=== PATIENT | female | born 1975 | race African-American/Black ===

== ENCOUNTER 2022-06-02 15:25 | Emergency (ER) | payer BC, MEDICAID ==
[~2022-06-02] VITALS: Ht 157.5 cm; Wt 104.0 kg
[2022-06-02 15:38] VITALS: BP 170/93
[2022-06-02] MEDS ORDERED: P50 MT (18:55)
[2022-06-02] MEDS ORDERED: CEPH500T MT (18:55)
[2022-06-02] MEDS ORDERED: ALBU18HF2 IH (18:56)
[2022-06-02] MEDS ORDERED: IBUP-2030 MT (18:58)
== END 2022-06-02 19:17 | disposition home or self-care (01) ==
LOC: ER 15:25
DX: N76.4 Abscess of vulva (principal); J44.1 Chronic obstructive pulmonary disease with (acute) exacerbation; J45.909 Unspecified asthma, uncomplicated; Z98.890 Other specified postprocedural states
CPT/HCPCS: 81025; 99282

== ENCOUNTER 2022-09-27 09:57 | Emergency (ER) | payer BC, OTHER ==
[~2022-09-27] VITALS: Ht 157.5 cm; Wt 94.0 kg
[~2022-09-27 09:57] MED LIST: ALBU18HF2 IH; CEPH500T MT; IBUP-2030 MT; P50 MT
[2022-09-27 10:01] VITALS: BP 146/81; PULSE 95; RESP 18; TEMP 98.3; O2SAT 96
[2022-09-27] MEDS ORDERED: METR-167 MT (10:34)
== END 2022-09-27 11:08 | disposition home or self-care (01) ==
LOC: ER 09:57
DX: N89.8 Other specified noninflammatory disorders of vagina (principal); J45.909 Unspecified asthma, uncomplicated; Z98.890 Other specified postprocedural states
CPT/HCPCS: 99281

== ENCOUNTER 2023-03-15 11:33 | Emergency (ER) | payer BC, OTHER ==
[~2023-03-15] VITALS: Ht 165.1 cm; Wt 90.0 kg
[~2023-03-15 11:33] MED LIST changes: +METR-167 MT
[2023-03-15 11:37] VITALS: O2SAT 97
[2023-03-15] MEDS ORDERED: ALBUTEROL (0.083%) 2.5MG/3ML NEB HHN STA (11:54)
[2023-03-15] MEDS ORDERED: PREDNISONE 20MG TABLET PO STA (11:54)
[2023-03-15] MEDS ORDERED: IPRATROPIUM BROMIDE (0.02%) 0.5MG/2.5ML NEB HHN STA (11:54)
[2023-03-15] MEDS ORDERED: ACETAMINOPHEN 325MG TABLET PO ONE (12:00)
[2023-03-15] MEDS ORDERED: IBUPROFEN 400MG TABLET PO ONE (12:00)
[2023-03-15 14:00] VITALS: PULSE 90; RESP 24
[2023-03-15] MEDS ORDERED: PREDNISONE 20MG TABLET PO NR (14:00)
[2023-03-15] MEDS ORDERED: ONDANSETRON HCL 4MG TABLET PO ONE (14:00)
[2023-03-15] MEDS ORDERED: IPRATROPIUM BROMIDE (0.02%) 0.5MG/2.5ML NEB HHN NR (14:00)
[2023-03-15] MEDS ORDERED: ALBUTEROL (0.083%) 2.5MG/3ML NEB HHN NR (14:00)
[2023-03-15] MEDS ORDERED: IBUPROFEN 400MG TABLET PO NR (14:00)
[2023-03-15] MEDS ORDERED: ACETAMINOPHEN 325MG TABLET PO NR (14:00)
[2023-03-15 14:43] LABS: BASOPHILS % 0.6 % (0.0-2.0); DIFFERENTIAL COMMENT 0; EOSINOPHILS % 3.3 % (0.0-5.0); HEMATOCRIT. 44.4 % (36.0-48.0); HEMOGLOBIN. 15.3 g/dL (12.0-16.0); LYMPHOCYTES % 33.8 % (20.0-50.0); MEAN CORPUSCULAR HEMOGLOBIN 34.8 pg (28.0-32.0); MEAN CORPUSCULAR HGB CONC 34.5 g/dL (31.0-37.0); MEAN CORPUSCULAR VOLUME 100.7 fL (81.0-99.0); MEAN PLATELET VOLUME 7.4 fl (7.4-10.4); MONOCYTES % 13.4 % (2.0-8.0); NEUTROPHILS % 48.9 % (40.0-76.0); PLATELET 268 x1000/uL (130-400); RED BLOOD CELL COUNT 4.41 mill/uL (4.2-5.4); RED CELL DISTRIBUTION WIDTH 13.6 % (11.6-14.6); WHITE BLOOD COUNT 4.9 x1000/uL (4.5-11.0)
[2023-03-15 14:44] LABS: ALANINE AMINOTRANSFERASE 30 IU/L (10-49); ALBUMIN 4.1 g/dL (3.2-4.8); ASPARTATE AMINOTRANSFERASE 39 IU/L (<34); BILIRUBIN TOTAL 0.3 mg/dL (0.1-1.0); CALCIUM 8.7 mg/dL (8.7-10.4); CARBON DIOXIDE 28 mEq/L (21-32); CHLORIDE 108 mEq/L (98-107); CREATININE 0.8 mg/dL (0.6-1.0); GLUCOSE 89 mg/dL (70-105); POTASSIUM 3.9 mEq/L (3.5-5.1); PROTEIN TOTAL 7.5 g/dL (6.0-8.3); SODIUM 141 mEq/L (136-145); TROPONIN I HIGH SENSITIVITY 4 ng/L (3.0-34); UREA NITROGEN BLOOD 9 mg/dL (9-23)
[2023-03-15 15:54] VITALS: BP 146/85; PULSE 70; RESP 18; TEMP 98.7
[2023-03-15] MEDS ORDERED: PENICILLIN G BENZATHINE 1,200,000 UNITS/2ML SYR IM ONE (16:00)
[2023-03-15] MEDS ORDERED: P50 MT (16:00)
[2023-03-15] MEDS ORDERED: ALBU6.7H15 INH (16:00)
[2023-03-15] MEDS ORDERED: BENZ200C52 MT (16:01)
== END 2023-03-15 16:09 | disposition home or self-care (01) ==
LOC: ER 11:33
DX: B34.9 Viral infection, unspecified (principal); J45.901 Unspecified asthma with (acute) exacerbation; Z20.822 Contact with and (suspected) exposure to COVID-19; Z98.890 Other specified postprocedural states
CPT/HCPCS: 80053; 83880; 85025; 84484; 87804 ×2; 36415; 71046; 94640; 93005; 99285; 87426; Q0162; J7512; Z7610 ×3; J0561